=== PATIENT | male | born 1995 | race Caucasian/White ===

== ENCOUNTER 2022-04-26 09:56 | Emergency (ER) | payer SELFPAY ==
[~2022-04-26] VITALS: Ht 165.1 cm; Wt 66.0 kg
[2022-04-26 10:03] VITALS: BP 151/110
[2022-04-26 12:01] LABS: BASOPHILS % 0.4 % (0.0-2.0); EOSINOPHILS % 0.9 % (0.0-5.0); HEMATOCRIT. 46.6 % (42.0-52.0); HEMOGLOBIN. 15.9 g/dL (14.0-18.0); LYMPHOCYTES % 10.1 % (20.0-50.0); MEAN CORPUSCULAR HEMOGLOBIN 30.8 pg (28.0-32.0); MEAN CORPUSCULAR VOLUME 90.1 fL (80.0-94.0); MEAN PLATELET VOLUME 7.5 fl (7.4-10.4); MONOCYTES % 6.4 % (2.0-8.0); NEUTROPHILS % 82.2 % (40.0-76.0); PLATELET 314 x1000/uL (130-400); RED BLOOD CELL COUNT 5.16 mill/uL (4.7-6.1); RED CELL DISTRIBUTION WIDTH 13.6 % (11.6-14.6)
[2022-04-26 12:12] LABS: CHLORIDE 90 mEq/L (98-107)
[2022-04-26 12:20] LABS: ETHANOL BLOOD < 10 mg/dL
== END 2022-04-26 12:43 | disposition home or self-care (01) ==
LOC: ER 09:56
DX: E87.8 Other disorders of electrolyte and fluid balance, not elsewhere classified (principal); T43.625A Adverse effect of amphetamines, initial encounter; X58.XXXA Exposure to other specified factors, initial encounter
CPT/HCPCS: 36415; 80053; 80307; 80320; 80329; 85025; 99283; G0480

== ENCOUNTER 2024-07-16 17:00 | Emergency (ER) | payer SELFPAY ==
[~2024-07-16] VITALS: Ht 177.8 cm; Wt 85.0 kg
[2024-07-16 17:05] VITALS: BP 125/72; PULSE 83; RESP 16; TEMP 98; O2SAT 99
== END 2024-07-16 18:00 | disposition left against medical advice (07) ==
LOC: ER 17:00
DX: F10.129 Alcohol abuse with intoxication, unspecified (principal); Y90.9 Presence of alcohol in blood, level not specified; Z53.21 Procedure and treatment not carried out due to patient leaving prior to being seen by health care provider
CPT/HCPCS: 99283